=== PATIENT | female | born 1985 | race African-American/Black ===

== ENCOUNTER 2021-04-16 00:04 | Emergency (ER) | payer OTHER ==
[2021-04-16 00:34] VITALS: BP 102/62; PULSE 74; TEMP 98.3; BMI 39.9
[2021-04-16] MEDS ORDERED: AMOX TR/POT CLAV 875MG/125MG TABLETS (FP) PO ONE (01:36)
[2021-04-16] MEDS ORDERED: DIPHTH,PERTUSS(ACELL),TET 0.5 ML DISP.SYRIN IM ONE ×2 (01:36→01:40)
[2021-04-16] MEDS ORDERED: AMOX TR/POT CLAV 875MG/125MG TABLETS (FP) ONE (01:40)
== END 2021-04-16 01:59 | disposition home or self-care (01) ==
LOC: JER 00:04
PROC: 3E0234Z Introduction of Serum, Toxoid and Vaccine into Muscle, Percutaneous Approach (ICD-10-PCS; principal; 2021-04-16)
DX: S51.851A Open bite of right forearm, initial encounter (principal); W54.0XXA Bitten by dog, initial encounter
CPT/HCPCS: 90715; 99283-25